=== PATIENT | male | born 2000 | race Caucasian/White ===

== ENCOUNTER 2022-12-12 16:01 | Emergency (ER) | payer SELFPAY ==
[~2022-12-12] VITALS: Ht 165 cm; Wt 74.8 kg
[2022-12-12 16:05] VITALS: BP 132/94
[2022-12-12] MEDS ORDERED: CLIN150C20 PO (16:20)
--- NOTE | 2022-12-12 16:21 | ED Upper Extremity ---
General Chief Complaint: Upper Extremity Stated Complaint: RIGHT FINGER SWELLING Nursing Triage Note: C/O FIRST FINGER ON RIGHT HAND SWELLING STATES HAS BEEN GETTING WORSE FOR 5 DAYS. Source: patient, family () Exam Limitations: no limitations History of Present Illness Date Seen by Provider: December 12, 2022 Time Seen by Provider: 16:07 Initial Comments 22-year-old male presents the emergency department today for right index finger swelling. Symptoms started a couple of days ago and have progressed. He states the swelling actually went down a little bit today but he is worried because he has lymph nodes in his armpit that are swollen now. Denies any fevers or chills. It started as a small abrasion to the flexor surface of his index finger while he was working. No foreign body. No fevers or chills. All other systems reviewed and negative except documented per HPI. Voice recognition software was used to help create this chart Allergies and Home Medications Allergies Coded Allergies: No Known Drug Allergies (Unverified , 12/12/22) Patient Home Medication List Home Medication List Reviewed: Yes Review of Systems Constitutional: see HPI Past Edlhbet-Npyyqb-Fjwvfn Hx Patient Social History Tobacco Use?: Yes Tobacco type used: Cigarettes Smoking Status: Current Everyday Smoker Substance use?: No Alcohol Use?: No Pt feels they are or have been: No Past Medical History Surgery/Hospitalization HX: DENIES Reproductive Disorders: No Physical Exam Vital Signs Vital Signs - First Documented 12/12/22 16:05 Temp 35.9 Pulse 108 Resp 16 B/P (MAP) 132/94 (107) Pulse Ox 98 O2 Delivery Room Air Capillary Refill : Less Than 3 Seconds Height, Weight, BMI Height: '" Weight: lbs. oz. kg; 27.00 BMI Method:Stated General Appearance: WD/WN, no apparent distress Cardiovascular: regular rate, rhythm, no murmur Respiratory: chest non-tender, normal breath sounds Gastrointestinal: non tender, soft Wrist: Yes normal inspection, Yes non-tender, Yes no evidence of injury Hand: swelling (Fusiform swelling of the right index finger. There is a small area of purulence on the flexor surface and the DIP. Less than 1 cm. He has full range of motion of his finger. Is not held in passive flexion and no pain with passive extension. Neurovascular motor and sensory intact.) Progress/Results/Core Measures Results/Orders Vital Signs/I&O 12/12/22 16:05 Temp 35.9 Pulse 108 Resp 16 B/P (MAP) 132/94 (107) Pulse Ox 98 O2 Delivery Room Air Blood Pressure Mean: 107 Departure Communication (Admissions) Patient has significant cellulitis of right index finger. No flexor tenosynovitis at present. There is a small area of purulent collection on the flexor surface however its not large enough to drain. We will go ahead and give him IM antibiotics here, Rocephin. Will discharge with p.o. antibiotics with ve ry strict return precautions. I advised him on the importance of returning should his symptoms worsen in any way and the significance of finger infections and how serious that they can be. He states understanding. He is discharged in stable condition with strict return precautions. Impression Primary Impression: Cellulitis of right index finger Disposition: HOME, SELF-CARE Condition: Stable Departure-Patient Inst. Referrals: NO,LOCAL PHYSICIAN (PCP) Primary Care Physician Patient Instructions: Cellulitis (Skin Infection), Adult ED Add. Discharge Instructions: As discussed finger infections can be quite serious. It is important to get seen again immediately if you are not getting better in the next 24 to 48 hours or if your symptoms are progressing rapidly or changing in any way concerning to you. We have given you a dose of antibiotics in shot form in the emergency department. Please take the antibiotic pills as prescribed until they are gone. Do not stop taking them simply because you start feeling better. All discharge instructions reviewed with patient and/or family. Voiced un derstanding. Scripts Clindamycin HCl (Clindamycin HCl) 150 Mg Capsule 300 MG PO TID for 10 Days, #60 CAP Prov: JONATHAN GREEN DO 12/12/22 JONATHAN GREEN DO December 12, 2022 16:21
[2022-12-12] MEDS ORDERED: LIDOCAINE 1% INJ 20 ML VIAL INJ ONE (16:30)
[2022-12-12] MEDS ORDERED: cefTRIAXone 1,000 MG VIAL (for IV or IM) IM ONE (16:30)
== END 2022-12-12 16:48 | disposition home or self-care (01) ==
LOC: EDUNIT# 16:01 → ER 16:02
DX: L03.011 Cellulitis of right finger (principal); F17.210 Nicotine dependence, cigarettes, uncomplicated
CPT/HCPCS: 99284